=== PATIENT | male | born 1945 | race Caucasian/White ===

== ENCOUNTER → 2019-01-05 | Outpatient (CLI) | payer MEDICARE ==
--- NOTE | 2019-01-05 11:10 | PCVCIMAG ---
EXAM: BILATERAL RENAL ULTRASOUND AND BILATERAL RENAL DUPLEX INDICATION: Hypertension FINDINGS: Right kidney: Length measures 11.0 cm. No hydronephrosis. Mild cortical thinning. Couple benign cysts upper kidney the largest measuring 3.2 x 3.7 x 3.5 cm. Right renal duplex: Adequate technical quality. No sonographic evidence of renal artery stenosis. The aortic to renal artery ratio is 3.0. The renal vein is patent. Left kidney: Length measures 9.6 cm. No hydronephrosis. Mild cortical thinning. Couple of benign cyst mid/lower left kidney largest measuring 1.9 cm. Left renal duplex: Adequate technical quality. 70-80% stenosis proximal/mid renal artery stenosis. The aortic to renal artery ratio is 5.5. The renal vein is patent. Bladder: No obvious abnormalities. IMPRESSION: No significant right renal artery stenosis. 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 LOC:[id number]
== END | disposition home or self-care (01) ==
LOC: PCVCIMAG 09:02
PROVIDERS: ATTEND Internal Medicine Cardiovascular Disease
DX: I12.9 Hypertensive chronic kidney disease with stage 1 through stage 4 chronic kidney disease, or unspecified chronic kidney disease (principal); N18.9 Chronic kidney disease, unspecified; I25.10 Atherosclerotic heart disease of native coronary artery without angina pectoris
CPT/HCPCS: 76770; 93975

== ENCOUNTER → 2019-01-09 | Outpatient (CLI) | payer MEDICARE | END | disposition home or self-care (01) | LOC: PCVCCLINIC 16:20 | PROVIDERS: ATTEND Internal Medicine Cardiovascular Disease | DX: I25.10 Atherosclerotic heart disease of native coronary artery without angina pectoris (principal); I10 Essential (primary) hypertension; R60.9 Edema, unspecified; E78.00 Pure hypercholesterolemia, unspecified; Z79.82 Long term (current) use of aspirin | CPT/HCPCS: 93005; G0463 ==